=== PATIENT | male | born 1945 | race Caucasian/White ===

== ENCOUNTER 2016-11-28 12:38 | Inpatient (IN) | payer MEDICARE ==
[2016-11-28] MEDS ORDERED: SODIUM CHLORIDE 0.9% 10 ML FLUSH FLUSH PRN (12:47)
[2016-11-28] MEDS ORDERED: HYDROmorphone 1 MG INJECTION IV ONE (12:48)
--- NOTE | 2016-11-28 13:42 | EDPRACDOC ---
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 SLIPPED ON ICE. NO OTHER INJURY REPORTED. Hip Problem Location: Reports: Left, Lateral Mechanism: Reports: Blunt Trauma Circumstances: Reports: Fall Relevant History: Reports: None Able to Bear Weight: No Pain Severity: Severe Associated Signs & Symptoms: Reports: None <Shi Das - Last Filed: 11/28/16 14:56> <Heath Jeter - Last Filed: 11/28/16 15:08> - General Information Chief Complaint: Hip Pain Stated Complaint: FALL Time Seen by Provider: 11/28/16 12:41 Home Medications: Home Medications Dicyclomine HCl [Bentyl] 20 mg PO Q6H #20 tab 07/05/16 Enzalutamide [Xtandi] 160 mg PO DAILY 07/05/16 Leuprolide Acetate [Lupron] 30 mg IM .[id number] 07/05/16 Losartan/Hydrochlorothiazide [Losartan-Hctz 100-25 mg Tab] 1 each PO DAILY 07/05 Metformin HCl [Metformin HCl ER] 1,000 mg PO BID 07/05/16 Allergies/Adverse Reactions: Allergies Allergy/AdvReac Type Severity Reaction Status Date / Time No Known Allergies Allergy Verified 07/05/16 08:34 - Treatment Prior to ED Arrival Reported Medications/Treatment 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 EMS Treatment ALS IV Yes <Shi Das - Last Filed: 11/28/16 14:56> - Treatment Prior to ED Arrival Reported Medications/Treatment 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 EMS Treatment ALS IV Yes <Heath Jeter - Last Filed: 11/28/16 15:08> ED Past Medical History - History Reviewed Yes Nurses notes reviewed and agree except as marked - Patient Medical History Cardiac History: Reports: Hypertension Psychological History: Denies: Depression - Social Medical History Smoking Status: Never smoker <Shi Das - Last Filed: 11/28/16 14:56> EDM Review of Systems - Review of Systems ROS Negative Except as Marked: Yes All systems reviewed and were negative except as marked Constitutional: No Symptoms Reported Respiratory: No Symptoms Reported Cardiovascular: No Symptoms Reported Gastrointestinal: No Symptoms Reported Neurological: No Symptoms Reported Musculoskeletal: Hip Integumentary: No Symptoms Reported <Shi Das - Last Filed: 11/28/16 14:56> - Physical Exam Constitutional: Alert, Distress Oriented to: Time, Person, Place Last recorded Vital Signs: Last Vital Signs Temp 98.4 F 11/28/16 13:19 Pulse 89 11/28/16 13:19 Resp 20 11/28/16 13:19 BP 205/79 H 11/28/16 13:19 Pulse Ox 98 11/28/16 13:19 Oxygen Pulse Oxygen Saturation 98 O2 Device Room Air Oxygen Flow Rate Fraction of Inspired Oxygen ( FIO2) - HEENT Head: Normal Eye Exam: Normal Neck: Normal, Denies Pain, Midline - Respiratory/Cardiovascular Respiratory: Normal - CTA Cardiovascular: Normal - GI Palpation: Normal Tenderness: Non tender - Musculoskeletal Back: Normal Extremities: Other (NOTED SHORTENING AND EXTERNAL ROTATION TO LEFT HIP; APPARENT DEFORMITY TO LEFT HIP; PEDAL PULSES INTACT;) - Integumentary Skin: Normal Lymphatics: Normal - Neurologic Cerebellar: Normal Mood Description: Normal Thought: Coherent Perception: Normal <PippaShi workman - Last Filed: 11/28/16 14:56> - Physical Exam Last recorded Vital Signs: Last Vital Signs Temp 98.4 F 11/28/16 13:19 Pulse 89 11/28/16 13:19 Resp 20 11/28/16 13:19 BP 205/79 H 11/28/16 13:19 Pulse Ox 98 11/28/16 13:19 Oxygen Pulse Oxygen Saturation 98 O2 Device Room Air Oxygen Flow Rate Fraction of Inspired Oxygen ( FIO2) <Heath Jeter - Last Filed: 11/28/16 15:08> ED Hip Problem Physical Exam - Musculoskeletal Hip: Limited ROM, Severe tenderness, Deformity Hip Deformity: External rotation Pelvis: Normal Thigh: Normal Back: Normal Distal Function/Circulation: Normal <PippaShi Roberto - Last Filed: 11/28/16 14:56> - Results 11/28/16 14:05 11/28/16 14:05 - EKG EKG #1 EKG Time: 12:57 -: Yes EKG interpreted by me Rate: bpm: 86 [place]: LAD Rhythm: NSR Block: None Hypertrophy: None ST: Normal <Shi Das Roberto - Last Filed: 11/28/16 14:56> - Results 11/28/16 14:05 11/28/16 14:05 <Heath Jeter - Last Filed: 11/28/16 15:08> - Departure Disposition: Admit IP To This Hospital Decision to Admit Time: 14:56 Decision to admit date: 11/28/16 Decision to admit: from ED - Physician Consulted Orthopedics Time Called: 14:56 Provider Called: Tristan Burt Time Weathercaster Returned Call: 14:56 <Shi Das - Last Filed: 11/28/16 14:56> - Departure Yes I personally saw and evaluated the patient. - Physician Consulted Hospitalist Time Called: 15:08 Provider Called: Scott Irving Time Weathercaster Returned Call: 15:08 <Heath Jeter - Last Filed: 11/28/16 15:08> - Departure Condition: Stable Final Diagnosis: Hip fracture Qualifiers: Encounter type: initial encounter Fracture type: closed Laterality: left Qualified Code(s): S72.002A - Fracture of unspecified part of neck of left femur , initial encounter for closed fracture
--- NOTE | 2016-11-28 14:12 | DIRPT ---
CLINICAL DATA: Status post fall today. Left hip pain. Initial encounter. EXAM: LEFT FEMUR - 2 VIEW COMPARISON: None. FINDINGS: There is no evidence of fracture or other focal bone lesions. Soft tissues are unremarkable. IMPRESSION: Negative exam. Electronically Signed By: Niraj Coulter M.D. On: 11/28/2016 14:09
--- NOTE | 2016-11-28 14:12 | DIRPT ---
CLINICAL DATA: Patient status post fall. EXAM: CHEST 1 VIEW COMPARISON: None. FINDINGS: Normal cardiac and mediastinal contours. No consolidative pulmonary opacities. No pleural effusion or pneumothorax. Regional skeleton is unremarkable. IMPRESSION: No acute cardiopulmonary process. Electronically Signed By: Ivan Ortiz M.D. On: 11/28/2016 14:09
--- NOTE | 2016-11-28 14:13 | DIRPT ---
CLINICAL DATA: Fall on ice, left hip pain. EXAM: LEFT HIP (WITH PELVIS) 2-3 VIEWS COMPARISON: None. FINDINGS: There is a significantly displaced/ comminuted fracture of the left femoral neck, intertrochanteric, with associated angulation deformity and impaction at the fracture site. Left femoral head remains grossly well positioned relative to the acetabulum. No fracture or dislocation seen within the adjacent osseous pelvis. Numerous surgical clips noted within the lower pelvis. Soft tissues about the pelvis are otherwise unremarkable. IMPRESSION: Displaced/comminuted fracture within the left femoral neck, intertrochanteric, with associated angulation deformity and impaction. Electronically Signed By: Wilfredo Kilpatrick M.D. On: 11/28/2016 14:10
[2016-11-28 14:19] LABS: AUTOMATED BASOPHIL 0.7 % (0-2); AUTOMATED EOSINOPHIL 0.8 % (0-5); AUTOMATED LYMPH 8.4 % (17-44); AUTOMATED MONOCYTE 7.4 % (3-10); AUTOMATED NEUTROPHIL 82.7 % (45-76); MPV 8.5 fL (7.4-10.4)
[2016-11-28 14:30] LABS: BLOOD UREA NITROGEN 18 MG/DL (9-20); CALCULATED OSMOLALITY 271 MOs/Kg (270-290); CHLORIDE 101 mEq/L (98-107); GLUCOSE 156 MG/DL (70-99); SODIUM LEVEL 138 mEq/L (137-146); TOTAL PROTEIN 7.2 G/DL (6.3-8.2)
[2016-11-28 14:37] LABS: PARTIAL THROMB. TIME 22.2 SEC (22-35)
[2016-11-28] MEDS ORDERED: OXYCODONE HCL 5 MG TABLET PO PRN ×2 (15:28)
--- NOTE | 2016-11-28 16:23 | PCM.ORTHCO ---
Consultation Date: 11/28/16 Reason for Consult: Fracture (left hip) - History of Present Illness Mr. garcias is a 71 year old male who presented to the ED today with left hip pain after a fall on the ice earlier today, around 11AM. He had hip pain following the fall and was unable to bear weight on the left leg. Patient was seen in the ED and diagnosed with a left intertrochanteric hip fracture. He was ambulating without assistive device prior to injury. Lives with his . Former smoker, over 20 years ago. History of hypertension and diabetes. Denies SOB or chest pain. No other concerns today. - Past Medical and Surgical History Cardiac History: Reports: Hypertension Psychological History: Denies: Depression Allergies No Known Allergies Allergy (Verified 07/05/16 08:34) Home Medications Dicyclomine HCl [Bentyl] 20 mg PO Q6H #20 tab 07/05/16 Enzalutamide [Xtandi] 160 mg PO DAILY 07/05/16 Leuprolide Acetate [Lupron] 30 mg IM .[id number] 07/05/16 Losartan/Hydrochlorothiazide [Losartan-Hctz 100-25 mg Tab] 1 each PO DAILY 07/05 Metformin HCl [Metformin HCl ER] 1,000 mg PO BID 07/05/16 - Social History Smoking Status: Former smoker (over 20 years ago) - Review of Systems Constitutional: negative: Chills, Fever Respiratory: negative: Shortness of Breath Cardiovascular: negative: Chest Pain Neurological: negative: Numbness, Tingling Musculoskeletal:: Joint Pain (left hip) - Physical Exam Vital Signs: Initial Vitals Temperature 98.2 F 11/28/16 12:50 Pulse Rate 95 11/28/16 12:50 Respiratory Rate 18 11/28/16 12:50 Blood Pressure 214/97 H 11/28/16 12:50 Pulse Oxygen Saturation 95 11/28/16 12:50 Last Vital Signs Temp 98.0 F 11/28/16 17:43 Pulse 80 11/28/16 17:43 Resp 18 11/28/16 17:43 BP 167/74 11/28/16 17:43 Pulse Ox 97 11/28/16 17:43 Constitutional: No apparent distress, Alert, Well appearing Oriented to: Time, Person, Place - HEENT Head: Normal - Musculoskeletal Extremities: Pedal Pulse, Other (LLE shortened and externally rotated. SITLT.) - Neurologic Memory Impaired: Normal Motor Function: Normal Cranial Nerve: Normal Mood Description: Normal Thought: Coherent Perception: Normal - Lab Results 11/28/16 14:05 11/28/16 14:05 - Diagnostic Findings EXAM: LEFT HIP (WITH PELVIS) 2-3 VIEWS COMPARISON: None. FINDINGS: There is a significantly displaced/ comminuted fracture of the left femoral neck, intertrochanteric, with associated angulation deformity and impaction at the fracture site. Left femoral head remains grossly well positioned relative to the acetabulum. No fracture or dislocation seen within the adjacent osseous pelvis. Numerous surgical clips noted within the lower pelvis. Soft tissues about the pelvis are otherwise unremarkable. IMPRESSION: Displaced/comminuted fracture within the left femoral neck, intertrochanteric, with associated angulation deformity and impaction. Electronically Signed By: Wilfredo Kilpatrick M.D. On: 11/28/2016 14:10 - Assessment/Plan (1) Intertrochanteric fracture of left hip S72.142A - DISPLACED INTERTROCHANTERIC FRACTURE OF LEFT FEMUR, INIT Acute Present on Admission: Yes initial encounter closed S72.142A - Displaced intertrochanteric fracture of left femur, initial encounter for closed fracture (2) Hip fracture S72.009A - FRACTURE OF UNSP PART OF NECK OF UNSP FEMUR, INIT Acute initial encounter closed left S72.002A - Fracture of unspecified part of neck of left femur, initial encounter for closed fracture Case Care Discussed with: Patient, Family Plan: Risks and benefits of surgery discussed with patient and family. Risks include but not limited to blood clot, infection, damage to blood vessels and nerves, need for further surgery, and risks of infection. Agree to proceed. Consent obtained and signed. Plan for IM nail of left hip tomorrow with Dr. Burt. Continue pain management Strict bed rest until after surgery NPO after midnight.
[2016-11-28] MEDS ORDERED: BENZONATATE 100 MG PERLES PO PRN (16:36)
[2016-11-28] MEDS ORDERED: GUAIFENESIN 200 MG/10 ML UDC PO PRN (16:36)
[2016-11-28] MEDS ORDERED: GLUCAGON 1 MG VIAL SQ PRN (16:36)
[2016-11-28] MEDS ORDERED: BISACODYL 5 MG TAB PO PRN (16:36)
[2016-11-28] MEDS ORDERED: GLUCOSE (ORAL GEL) 15 GM TUBE PO PRN (16:36)
[2016-11-28] MEDS ORDERED: SODIUM CHLORIDE 0.9% 3 ML FLUSH FLUSH PRN (16:36)
[2016-11-28] MEDS ORDERED: DOCUSATE-SENNA CONCENTRATE TAB PO PRN (16:36)
[2016-11-28] MEDS ORDERED: SIMETHICONE 80 MG TAB PO PRN (16:36)
[2016-11-28] MEDS ORDERED: TEMAZEPAM 15 MG CAP PO PRN (16:36)
[2016-11-28] MEDS ORDERED: ACETAMINOPHEN 325 MG/TAB TABLET PO PRN (16:36)
[2016-11-28] MEDS ORDERED: ONDANSETRON HCL 4 MG/2 ML VIAL IV PRN ×2 (16:36)
[2016-11-28] MEDS ORDERED: DEXTROSE 25 GM/50 ML PFS IV PRN (16:36)
[2016-11-28] MEDS ORDERED: ENALAPRILAT 1.25 MG/ML VIAL IV PRN (16:43)
--- NOTE | 2016-11-28 16:47 | HISTPHYS ---
- Chief Complaint leg pain - History of Present Illness 71 yo male with has been previously active presented to the ED after a fall on the ice today at his home. He denies any CP, SOB or dizziness prior to the fall. There had been a snowfall and ice formation the night before. the patient was looking for his morning newspaper. He did not sustain a head injury and had no LOC. he was brought to the ED by EMS. Xrays show a left femoral neck fracture. - Medical History Cardiac History: Reports: Hypertension, Stress Test (distant past. No cath done) . Denies: Coronary Artery Disease, Congestive Heart Failure, Syncope Respiratory History: Reports: No Significant History GI/ History: Reports: Kidney Stones (lithotripsy x 2) Musculoskeletal History: Reports: No Significant History Systemic History: Reports: Cancer (prostate), Diabetes Neurological History: Reports: No Significant History. Denies: Cerebrovascular Accident, Parkinson's Psychological History: Denies: Depression, Alcoholism - Surgical History Reports: Other (prostste surgery) - Medictions/Allergies Allergies No Known Allergies Allergy (Verified 07/05/16 08:34) Home Medications Dicyclomine HCl [Bentyl] 20 mg PO Q6H #20 tab 07/05/16 Enzalutamide [Xtandi] 160 mg PO DAILY 07/05/16 Leuprolide Acetate [Lupron] 30 mg IM .[id number] 07/05/16 Losartan/Hydrochlorothiazide [Losartan-Hctz 100-25 mg Tab] 1 each PO DAILY 07/05 Metformin HCl [Metformin HCl ER] 1,000 mg PO BID 07/05/16 - Family History Reports: Diabetes - Social History Travel Outside of [place] in the Last 3 Months?: No Lives: with Spouse Smoking Status: Former smoker (over 20 years ago) Social History: Denies: Alcohol Use - Review of Systems Constitutional: negative: Chills, Fever, Fatigue, Weakness, Weight loss Eyes: Uses Glasses/Contact lenses Ears: No Symptoms Reported Nose: No Symptoms Reported Mouth: No Symptoms Reported Throat/Neck: No Symptoms Reported. negative: Snoring Respiratory: No Symptoms Reported. negative: Cough, Shortness of Breath, Asthma Cardiovascular: No Symptoms Reported. negative: Chest Pain, Edema, PND, Syncope Gastrointestinal: negative: No Symptoms Reported, Heartburn, Appetite Changes Genitourinary: negative: Bleeding, Discharge Neurological: negative: Dizziness, Gait Difficulty, Headache, Speech Difficulty , Weakness Musculoskeletal:: No Symptoms Reported. negative: Osteoarthritis Integumentary: No Symptoms Reported Allergic/Immunologic: No Symptoms Reported Hematologic: No Symptoms Reported Endocrine: Diabetes (controlled with metformin) Psychiatric: negative: Anxiety, Depression, Insomnia - Physical Exam Vital Signs: Initial Vitals Temperature 98.2 F 11/28/16 12:50 Pulse Rate 95 11/28/16 12:50 Respiratory Rate 18 11/28/16 12:50 Blood Pressure 214/97 H 11/28/16 12:50 Pulse Oxygen Saturation 95 11/28/16 12:50 Constitutional: No apparent distress, Other (obese) Oriented to: Time, Person, Place - HEENT Head: Normal. negative: Abrasion Eye: Normal. negative: Conjunctival Injection Oropharynx: Normal. negative: Tonsillar Hypertrophy Tympanic Membrane: Normal ENT EAC: Normal Nose: negative: Abrasion, Congestion Respiratory: Normal - CTA. negative: Accessory Muscle Use, Wheezes Cardiovascular: Normal (S1 and S2 normal, no edema) - GI Auscultation: Normal Palpation: Normal. negative: Enlarged liver, Enlarged spleen Tenderness: Non tender Rectal Exam: Deferred - Exam Deferred: Yes - Musculoskeletal Back: No Palpable Step-off, Other (not viewed due to immobilization from fracture) Extremities: Pedal Pulse (intact and equal). negative: Calf Tenderness, Edema Spine: non-tender - Integumentary Skin: Warm, Dry Lymphatics: negative: Adenopathy, Cervical Adenopathy, Supraclavicular Adenopathy - Neurologic Memory Impaired: Normal Motor Function: Normal, Unable to Test (LLE not tested due to fracture.) Cranial Nerve: Normal (CN2-12 intact) Cerebellar: Normal Mood Description: Normal Thought: Coherent Perception: Normal - Foot Exam Foot Prick Test: Normal Babinski Reflex Response: Absent Bilateral Achilles Tendon Reflex Response: Normal Skin/Nail Foot Exam: Dry. negative: Maceration, Skin Breakdown Vascular Foot exam: negative: Edema, Capillary refill Greater than 3-4 seconds Foot Exam: Normal inspection, Full ROM. negative: Tenderness, Amputation, Puncture wound - Focused CV Perfusion Exam Vital Signs: Last Vital Signs Temp 98.4 F 11/28/16 13:19 Pulse 77 11/28/16 15:20 Resp 18 11/28/16 15:20 BP 167/77 11/28/16 15:20 Pulse Ox 97 11/28/16 15:20 - Lab Results 11/28/16 14:05 11/28/16 14:05 - Diagnostic Findings CXR: no acute cardipulmonary process. - Assessment (1) Intertrochanteric fracture of left hip S72.142A - DISPLACED INTERTROCHANTERIC FRACTURE OF LEFT FEMUR, INIT Acute Present on Admission: Yes Qualifiers: Encounter type: initial encounter Fracture type: closed Qualified Code(s) : S72.142A - Displaced intertrochanteric fracture of left femur, initial encounter for closed fracture Surgery planned by orthopedics. No medical contraindication as medical problems are controlled. EKG unremarkable. (2) Diabetes type 2, controlled E11.9 - TYPE 2 DIABETES MELLITUS WITHOUT COMPLICATIONS Acute Present on Admission: Yes Qualifiers: Diabetes mellitus complication status: without complication Diabetes mellitus surveillance supervisor insulin use: without surveillance supervisor use Qualified Code(s): E11.9 - Type 2 diabetes mellitus without complications Hold metformin until eating again. Will use low dose SSI and follow sugars. Check hemoglobin A1c but by report his CBGs are controlled in the 150-170 range on average. (3) Hypertension I10 - ESSENTIAL (PRIMARY) HYPERTENSION Acute Present on Admission: Yes Qualifiers: Hypertension type: essential hypertension Qualified Code(s): I10 - Essential (primary) hypertension Elevated today likely due to pain. Patient and state his blood pressure has been controlled at home. Use IV vasotec if eevated. Hold oral medications until post-op and he took his medications this am. (4) History of prostate cancer Z85.46 - PERSONAL HISTORY OF MALIGNANT NEOPLASM OF PROSTATE Acute Present on Admission: Yes Still on treatment. Continue home medications after surgery. Case Care Discussed with: Patient, Family Total Time: 55 min Critical Care: No Code: 13414
[2016-11-28] MEDS ORDERED: HYDROmorphone 1 MG INJECTION ONE (17:07)
[2016-11-28 17:49] VITALS: BMI 31.8
[2016-11-28] MEDS: SODIUM CHLORIDE 0.9% 3 ML FLUSH FLUSH SCH (18:38)
[2016-11-28] MEDS: D5-1/2NS/KCL 20 mEq 1,000 ML IV SCH (18:38)
[2016-11-28] MEDS: REGULAR INSULIN 100 UNITS/ML - 3 ML VIAL SQ SCH ×2 (18:38→20:06)
[2016-11-28] MEDS ORDERED: ENZALUTAMIDE 160 MG PO SCH (20:00)
[2016-11-28] MEDS ORDERED: Vaccine Screening Complete SCH (21:00)
[2016-11-28] MEDS ORDERED: CHLORHEXIDINE (HIBICLENS) 4 OZ BOTTLE TOP ONE (21:00)
[2016-11-29] MEDS: SODIUM CHLORIDE 0.9% 3 ML FLUSH FLUSH SCH ×2 (00:42→17:18)
[2016-11-29] MEDS: MORPHINE 2 MG/ML INJECTION IV PRN ×3 (00:42→23:08)
[2016-11-29] MEDS: REGULAR INSULIN 100 UNITS/ML - 3 ML VIAL SQ SCH ×4 (02:04→23:05)
[2016-11-29] MEDS: D5-1/2NS/KCL 20 mEq 1,000 ML IV SCH ×2 (06:12→19:30)
[2016-11-29] MEDS ORDERED: CEFAZOLIN 1 GM VIAL IV ONE (07:00)
[2016-11-29] MEDS ORDERED: SUCCINYLCHOLINE 20 MG/1 ML INJ 10 ML MDV IV ONE (10:00)
[2016-11-29] MEDS ORDERED: ESMOLOL 100 MG/10 ML VIAL IV ONE (10:00)
[2016-11-29] MEDS ORDERED: LIDOCAINE 100 MG PFS IV ONE (10:00)
[2016-11-29] MEDS ORDERED: DEXAMETHASONE 4 MG/ML VIAL IV ONE (10:00)
[2016-11-29] MEDS ORDERED: MIDAZOLAM 2 MG/2 ML VIAL IV ONE (10:00)
[2016-11-29] MEDS ORDERED: ROCURONIUM 50 MG/5 ML VIAL IV ONE (10:00)
[2016-11-29] MEDS ORDERED: ONDANSETRON HCL 4 MG/2 ML VIAL IV ONE (10:00)
[2016-11-29] MEDS ORDERED: FENTANYL 100 MCG/2 ML VIAL IV ONE (10:00)
[2016-11-29] MEDS ORDERED: PROPOFOL 200 MG/20 ML VIAL IV ONE (10:00)
[2016-11-29] MEDS ORDERED: MEPERIDINE 25 MG/ML TUBEX IV PRN (10:30)
[2016-11-29] MEDS ORDERED: FENTANYL 100 MCG/2 ML VIAL IV PRN ×2 (10:30)
[2016-11-29] MEDS ORDERED: PROMETHAZINE 25 MG/ML VIAL IV PRN ×2 (10:30)
[2016-11-29] MEDS ORDERED: ONDANSETRON HCL 4 MG ODT TAB PO PRN (10:30)
[2016-11-29] MEDS ORDERED: HYDROmorphone 1 MG INJECTION IV PRN ×2 (10:30)
[2016-11-29] MEDS ORDERED: ONDANSETRON HCL 4 MG/2 ML VIAL IV PRN (10:30)
[2016-11-29] MEDS ORDERED: LABETALOL 20 MG/4 ML SYRINGE IV PRN (10:30)
[2016-11-29] MEDS ORDERED: hydrALAZINE 20 MG/ML VIAL IV PRN (10:30)
--- NOTE | 2016-11-29 10:30 | SC.ANESPOS ---
Post-Anesthesia Note LOC: [place] on Calling Post-Anesthesia Assessment: Awake, Returned to Baseline, Hemodynamically Stable , Pain Control Adequate Phase I & II Recovery Complete: Yes Apparent Anesthesia Complication: No : N - Vital Signs Blood Pressure: 142/66 Pulse: 78 Resp Rate: 18 O2 Sat: 94 Temp: 98.6 F
--- NOTE | 2016-11-29 10:32 | HIM.ANES ---
Anesthesia Evaluation & Plan - Focused Review of Systems Cardiac History: Yes: Hx Hypertension, Hx Cardiac Disorders HEENT: Yes: Hx Vision Problem (Glasses), Other HEENT Problems Gastrointestinal: Yes: Hx Gastrointestinal Disorders, Hx Obstructive Bowel ( intestinal blockage in july-) Neurological/Musculoskeletal: No: Hx Neurological Disorders Psychological: No Hx Depression, No Hx Mental/Emotional Disorders Endocrine: Yes: Hx Non-Insulin Dependent Diabetes (metformin bid) Blood/Autoimmune: Yes: Hx Blood Transfusions (auto infused) No: Hx Hepatitis (type) Smoking Status: Former smoker (over 20 years ago) Hx Chest Xray (date): Yes (11/28/2015) Surgical History: Yes: T&A (removed at 6mo old) Other Surgical History: prostate surgery 12 years ago - Focused Physical Exam NPO since: 0000 11/29/2016 Mallampati: Class III Thyromental Distance: Less than 3 Neck: Full Range of Motion Dental: Other (Many missing teeth) Cardiovascular/Chest: Normal Respiratory: Lungs clear Any problems with anesthesia, including nausea and vomiting?: No Any relatives with a history of Malignant Hyperthermia?: No Does patient have a history of Malignant Hyperthermia?: No Beta Dustin given (if appropriate): N/A Other: Problem List Problem Status Onset Diabetes type 2, controlled Acute Hip fracture Acute History of prostate cancer Acute Hypertension Acute Intertrochanteric fracture of left hip Acute PT/PTT/INR/ PT 10.7 SEC (9.2-11.2) 11/28/16 14:05 INR 1.0 11/28/16 14:05 APTT 22.2 SEC (22-35) 11/28/16 14:05 Allergies Allergy/AdvReac Type Severity Reaction Status Date / Time No Known Allergies Allergy Verified 07/05/16 08:34 Home Medications Medication Instructions Recorded Last Taken Type Enzalutamide [Xtandi] 160 mg PO DAILY 07/05/16 11/27/16 22:15 History Losartan/Hydrochlorothiazide 1 each PO DAILY 07/05/16 11/28/16 07:30 History [Losartan-Hctz 100-25 mg Tab] Metformin HCl [Metformin HCl ER] 500 mg PO BID 07/05/16 11/27/16 22:15 History Height and Weight Patient's height 6 ft Patient's weight 234 lb 8 oz Weight (Calculated Kilograms) 106.367 BMI 31.8 Vital Signs Temperature 98.6 F 11/29/16 10:30 Pulse Rate 78 11/29/16 10:30 Respiratory Rate 18 11/29/16 10:30 Blood Pressure 142/66 11/29/16 10:30 Pulse Oxygen Saturation 94 11/29/16 10:30 - Anesthetic Plan Anesthesia Type: General (Pt requests GA) ASA Class: 2 -: I have examined this patient and reviewed the medical record. The patient has been assessed prior to anesthesia. Risks and benefits of anesthesia and anesthetic technique options have been discussed and all questions answered. The patient accepts the risk and desires me to proceed with the planned anesthetic.
--- NOTE | 2016-11-29 13:00 | HIMOPRPT ---
DATE OF PROCEDURE: 11/29/16 PREOPERATIVE DIAGNOSIS: Left hip subtrochanteric fracture. POSTOPERATIVE DIAGNOSIS: Left hip subtrochanteric fracture. PROCEDURE PERFORMED: Left hip gamma nail, hip intramedullary nail. SURGEON: Tristan Burt MD. PAID SEARCH MANAGER: KARSTEN Espitia ANESTHESIA: General endotracheal Anesthesia. IV FLUIDS: Crystalloids ESTIMATED BLOOD LOSS: 50 ml SPECIMENS: none. COMPLICATIONS: None. IMPLANTS: Synthetic Substitute Metal [place] gamma 3 nail [id number] millimeters long, proximal locking screw 110 millimeters long. BRIEF HISTORY: WAYNE CRAWFORD is a 71 year-old M patient. Patient had history of fall and sustained a left hip subtrochanteric fracture. Based on the nature and displacement of the fracture open reduction internal fixation versus closed reduction and intramedullary nailing was recommended. Informed consent was obtained from the patient. The patient understood that the risks involved in surgery include infection, damage to the nerve, blood vessel, need for further surgery, implant failure, continued pain, DVT, pulmonary embolism, stroke, and even . The patient was seen on the day of surgery in the preop holding area. Surgical site was marked. The patient was then wheeled back into the operating room. DESCRIPTION OF THE PROCEDURE: Proper time-out was performed. 2 grams of IV Ancef were given. The patient was given proper anesthesia. Left lower extremity was placed in traction and left lower extremity was placed in well- leg davis. Preoperative longitudinal traction was applied and closed reduction of the fracture was achieved. This appeared acceptable on both AP and lateral view using C-arm. The left lower extremity was prepped and draped. We started with an incision proximal to the greater trochanter. AP and lateral C -arm images were used. Entrance was created using a curved bone awl. We then inserted a guidewire across the fracture site into the distal fragment. The femur was then reamed. We reamed up to 14.5 millimeter diameter reamer. We then measured the size of the nail as 380 millimeters long nail. We then procured if 20w328 millimeters gamma 3 nail and this was inserted in an antegrade fashion. This nail was 125 degrees neck shaft angle. We then drilled for the proximal lag screw. The length of the lag screw was measured at 110 millimeters. We then inserted a 110-millimeter long lag screw proximally. The nail was locked in place. We then placed a distal static lock through the distal part of the nail using freehand technique. Final AP and lateral x-rays were obtained. The wound was copiously irrigated with normal saline and closed in layers. The patient tolerated the procedure very well and was taken to the recovery room in stable condition. DISPOSITION: Patient will be weight-bearing as tolerated on his left lower extremity The patient would also be started on [Aspirin 325mg Bid] .
[2016-11-29] MEDS ORDERED: HYDROmorphone 1 MG INJECTION ONE (13:24)
[2016-11-29] MEDS ORDERED: FENTANYL 100 MCG/2 ML VIAL ONE (13:54)
--- NOTE | 2016-11-29 15:51 | DIRPT ---
CLINICAL DATA: ORIF. EXAM: LEFT HIP (WITH PELVIS) 1 VIEW PORTABLE COMPARISON: None. FINDINGS: ORIF left subtrochanteric hip fracture. Hardware intact. Near anatomic alignment. Exam otherwise unremarkable . IMPRESSION: ORIF left sub trochanteric hip fracture . Hardware intact. Near anatomic alignment . Electronically Signed By: Niraj Milan On: 11/29/2016 15:49
--- NOTE | 2016-11-29 16:32 | GENMEDPROG ---
Subjective Note: Patient just returned from OR doing very well he is awake and alert and oriented. Notes Reviewed: Yes Events from last night noted and discussed with Clinical Staff Current Medication List: Reviewed Currently: Denies: Cough, Wheezing, WINKLER, Nausea and Vomiting, Reflux Sx, Caty PT/ OT, Ambulating DVT Prophylaxis: Yes - Physical Examination Vital Signs and I&O: Last Vital Signs Temp 98.6 F 11/29/16 15:25 Pulse 82 11/29/16 15:35 Resp 18 11/29/16 15:35 BP 139/73 11/29/16 15:35 Pulse Ox 98 11/29/16 15:35 Oxygen Pulse Oxygen Saturation [ 85 Seated] Pulse Oxygen Saturation 98 O2 Device Nasal Cannula Oxygen Flow Rate 2 Fraction of Inspired Oxygen ( FIO2) Intake & Output 11/26/16 11/27/16 11/28/16 11/29/16 23:59 23:59 23:59 23:59 Intake Total 200 672 Output Total 400 1100 Balance -200 -428 Patient's weight 106.367 kg General: Alert, Oriented x3, No acute distress, Well appearing, Well nourished HEENT: Normal (Normocephalic, atraumatic;EOMI.Sclera white, Nares patent, without discharge or bleeding. No oropharyngeal lesions or erythema. Mucous membranes are dry.) Neck: Non-tender, Full range of motion, Normal Trachea alignment, Normal inspection (No cervical lymphadenopathy. No supraclavicular lymphadenopathy.), No Masses palpable, Supple Lymphatics: negative: Adenopathy, Cervical Adenopathy, Supraclavicular Adenopathy Respiratory: Normal - CTA. negative: Accessory Muscle Use, Wheezes Cardiovascular: Regular rate and rhythm (No bradycardia or tachycardia), Normal S1, No Gallops,Rubs/Murmurs, Normal S2, Good Pedal Pulses (DP pulses 2+ bilaterally) GI: Normal bowel sounds (normal active sounds), Soft (non-distended), Non tender , No hepatospenomegaly, No masses Extremities/Musculoskeletal: Normal pulses (DP pulses 2+ bilaterally) Skin: Warm,Dry and Intact, No rashes, No significant lesion Neurological: Strength at 5/5 X4 ext (Motor 5/5 throughout.), Normal tone, Cranial nerves 3-12 NL ( 2-12 grossly intact.) Lab/DI/Studies Reviewed: Abnormal Lab Results 11/28/16 11/28/16 11/29/16 16:36 20:04 05:50 POC Capillary Glucose 176 H 140 H Hemoglobin A1c 6.6 H 11/29/16 13:30 POC Capillary Glucose 160 H Hemoglobin A1c - Assessment (1) Intertrochanteric fracture of left hip Acute S72.142A - DISPLACED INTERTROCHANTERIC FRACTURE OF LEFT FEMUR, INIT Qualifiers: Encounter type: initial encounter Fracture type: closed Qualified Code(s) : S72.142A - Displaced intertrochanteric fracture of left femur, initial encounter for closed fracture Comment/Plan: Patient did well in the OR. He is currently postoperative awake and alert communicating. (2) Diabetes type 2, controlled Acute E11.9 - TYPE 2 DIABETES MELLITUS WITHOUT COMPLICATIONS Qualifiers: Diabetes mellitus complication status: without complication Diabetes mellitus terminal gauger insulin use: without terminal gauger use Qualified Code(s): E11.9 - Type 2 diabetes mellitus without complications Comment/Plan: Hold metformin until eating again. Will use low dose SSI and follow sugars. Check hemoglobin A1c but by report his CBGs are controlled in the 150-170 range on average. (3) Hypertension Acute I10 - ESSENTIAL (PRIMARY) HYPERTENSION Qualifiers: Hypertension type: essential hypertension Qualified Code(s): I10 - Essential (primary) hypertension Comment/Plan: Elevated today likely due to pain. Patient and state his blood pressure has been controlled at home. Use IV vasotec if eevated. Hold oral medications until post-op and he took his medications this am. (4) History of prostate cancer Acute Z85.46 - PERSONAL HISTORY OF MALIGNANT NEOPLASM OF PROSTATE Comment/ Plan: Still on treatment. Continue home medications after surgery. - Plan To skilled facility once stable Disposition Plan: To skilled facility Case Care Discussed with: Patient, Family Education/Counseling Given To: Patient, Family Member Education/Counseling Given Regarding: Diagnosis, Treatment, Prognosis, Follow Up , Disposition Plan, Other Total Time: 35 minutes Critical Care: No Couseling Time (>50% in counseling/coordination): No
[2016-11-29] MEDS: Aspirin (Orange Enteric Coated) 325 mg tab PO SCH (17:18)
[2016-11-30] MEDS: MORPHINE 2 MG/ML INJECTION IV PRN ×3 (01:33→13:09)
[2016-11-30] MEDS: SODIUM CHLORIDE 0.9% 3 ML FLUSH FLUSH SCH ×2 (05:48→17:04)
[2016-11-30] MEDS: D5-1/2NS/KCL 20 mEq 1,000 ML IV SCH ×3 (05:50→20:00)
[2016-11-30] MEDS: REGULAR INSULIN 100 UNITS/ML - 3 ML VIAL SQ SCH ×4 (05:50→21:21)
[2016-11-30 07:15] LABS: MPV 8.7 fL (7.4-10.4)
[2016-11-30 07:47] LABS: BLOOD UREA NITROGEN 15 MG/DL (9-20); CALCIUM 8.3 MG/DL (8.4-10.2); CALCULATED OSMOLALITY 260 MOs/Kg (270-290); CHLORIDE 101 mEq/L (98-107); GLUCOSE 176 MG/DL (70-99); SODIUM LEVEL 132 mEq/L (137-146)
[2016-11-30] MEDS: Aspirin (Orange Enteric Coated) 325 mg tab PO SCH ×2 (08:14→17:04)
[2016-11-30] MEDS ORDERED: OXYCODONE HCL 5 MG TABLET PO PRN (08:48)
--- NOTE | 2016-11-30 08:49 | PCM.ORTHBL ---
- Subjective Post Op Day: 1 Daily Assessment - Patient: Reports: No new complaints, Awake Alert Oriented x4 , Feels better, Pain is less, Tolerating Regular Diet, Voiding without difficulty, Afebrile, Ambulating with Physical Therapist. Denies: Shortness of breath, Nausea, Vomiting - Objective / Physical Exam Vital Signs: Temperature: 98.7 F (11/30/16 06:00) HR: 106 (11/30/16 06:25)RR: 18 (11/30/16 06 :00) BP: 146/71 (11/30/16 06:00)Pulse Ox: 92 (11/30/16 06:00) General: Alert, Oriented x3, Cooperative, No acute distress, Well appearing Musculoskeletal / Extremities: 2 plus Dorsalis Pedis Pulse, Dressing Clean/Dry/ Intact. negative: Tenderness (no calf tenderness) Neurological: Positive Sensation First Dorsal Web Space, Sensation to light touch intact, Extensor Hallicus Longus Intact, Flexor Hallicus Longus Intact, Dorsiflexion Intact, Plantarflexion Intact Laboratory/Diagnostics Reviewed: 11/30/16 06:45 11/30/16 06:45 - Assessment and Plan (1) Intertrochanteric fracture of left hip Acute S72.142A - DISPLACED INTERTROCHANTERIC FRACTURE OF LEFT FEMUR, INIT Present on Admission: Yes initial encounter closed S72.142A - Displaced intertrochanteric fracture of left femur, initial encounter for closed fracture (2) Hip fracture Acute S72.009A - FRACTURE OF UNSP PART OF NECK OF UNSP FEMUR, INIT initial encounter closed left S72.002A - Fracture of unspecified part of neck of left femur, initial encounter for closed fracture Plan: POD#1 s/p IM nail PT/OT/WBAT TEDS/SCDS/ECASA 325mg BID for 30 days post-op for DVT prophylaxis Continue pain management D/C planning, plan for rehab/SNF
[2016-11-30] MEDS: OXYCODONE HCL 5 MG TABLET PO PRN (09:42)
--- NOTE | 2016-11-30 17:23 | GENMEDPROG ---
Subjective Note: Patient with no new complaints. Blood pressure has been stable. Currently: Denies: Cough, Wheezing, WINKLER, Nausea and Vomiting, Reflux Sx, Caty PT/ OT, Ambulating DVT Prophylaxis: Yes - Physical Examination Vital Signs and I&O: Last Vital Signs Temp 98.2 F 11/30/16 14:00 Pulse 100 11/30/16 14:00 Resp 18 11/30/16 14:00 BP 150/75 11/30/16 14:00 Pulse Ox 93 11/30/16 14:00 Oxygen Pulse Oxygen Saturation [ 85 Seated] Pulse Oxygen Saturation 93 O2 Device Nasal Cannula Oxygen Flow Rate 2 Fraction of Inspired Oxygen ( FIO2) Intake & Output 11/27/16 11/28/16 11/29/16 11/30/16 23:59 23:59 23:59 23:59 Intake Total 200 1528 600 Output Total 400 1725 1050 Balance -200 197 -450 Patient's weight 106.367 kg 107.275 kg General: Alert, Oriented x3, Cooperative, No acute distress, Well appearing HEENT: Normal (Normocephalic, atraumatic;EOMI.Sclera white, Nares patent, without discharge or bleeding. No oropharyngeal lesions or erythema. Mucous membranes are dry.) Neck: Non-tender, Full range of motion, Normal Trachea alignment, Normal inspection (No cervical lymphadenopathy. No supraclavicular lymphadenopathy.), No Masses palpable, Supple Lymphatics: Normal (No lymph node swelling or pain.) Respiratory: Normal - CTA (Clear to auscultation bilaterally. No wheezing, rales , rhonchi. Chest wall movements are symmetric. No use of accessory muscles to breathe.) Cardiovascular: Regular rate and rhythm (No bradycardia or tachycardia), Normal S1, No Gallops,Rubs/Murmurs, Normal S2, Good Pedal Pulses (DP pulses 2+ bilaterally) GI: Normal bowel sounds (normal active sounds), Soft (non-distended), Non tender , No hepatospenomegaly, No masses Skin: Warm,Dry and Intact, No rashes, No significant lesion Neurological: Strength at 5/5 X4 ext (Motor 5/5 throughout.), Normal tone, Cranial nerves 3-12 NL ( 2-12 grossly intact.) Lab/DI/Studies Reviewed: Abnormal Lab Results 11/29/16 11/30/16 11/30/16 20:43 05:23 06:45 RBC Hgb Hct Sodium 132 L Glucose 176 H POC Capillary Glucose 150 H 178 H Calculated Osmolality 260 L Calcium 8.3 L 11/30/16 11/30/16 11/30/16 06:45 11:15 16:20 RBC 3.32 L Hgb 10.5 L D Hct 30.8 L Sodium Glucose POC Capillary Glucose 196 H 154 H Calculated Osmolality Calcium - Assessment (1) Intertrochanteric fracture of left hip Acute S72.142A - DISPLACED INTERTROCHANTERIC FRACTURE OF LEFT FEMUR, INIT Qualifiers: Encounter type: initial encounter Fracture type: closed Qualified Code(s) : S72.142A - Displaced intertrochanteric fracture of left femur, initial encounter for closed fracture Comment/Plan: Patient ambulated to chair today and did well. (2) Diabetes type 2, controlled Acute E11.9 - TYPE 2 DIABETES MELLITUS WITHOUT COMPLICATIONS Qualifiers: Diabetes mellitus complication status: without complication Diabetes mellitus terminal gauger supervisor insulin use: without terminal gauger supervisor use Qualified Code(s): E11.9 - Type 2 diabetes mellitus without complications Comment/Plan: Can restart metformin today. Hemoglobin A1c is well controlled. Continue present care (3) Hypertension Acute I10 - ESSENTIAL (PRIMARY) HYPERTENSION Qualifiers: Hypertension type: essential hypertension Qualified Code(s): I10 - Essential (primary) hypertension Comment/Plan: Patient tolerating p.o. intake. Will restart oral meds blood pressure medications. (4) History of prostate cancer Acute Z85.46 - PERSONAL HISTORY OF MALIGNANT NEOPLASM OF PROSTATE Comment/ Plan: Still on treatment. Continue home medications after surgery. - Plan To skilled facility once stable Medical team conference was held on the patient discussion of diagnosis treatments plans and prognosis as well as disposition. In addition to myself the following team members were present nursing, physical therapy, speech therapy, occupational therapy, case management, social work, nutrition, exhibition carver , palliative care, and home health nursing. Input from each discipline was recieved and is incorporated in the plan of care in the medical record as well as in the plans in the progress notes. Disposition Plan: To skilled facility Case Care Discussed with: Patient, Family, Nursing Staff Education/Counseling Given To: Patient, Family Member Education/Counseling Given Regarding: Diagnosis, Treatment, Prognosis, Follow Up , Disposition Plan Total Time: 45 minutes Critical Care: No Couseling Time (>50% in counseling/coordination): No
[2016-11-30 22:27] LABS: LEUKOCYTES/URINE NEG (NEGATIVE); NITRITE/URINE NEG (NEGATIVE); URINE OCCULT BLOOD NEG (NEG/TRACE); WBC/URINE 0-2 (0-2)
[2016-12-01] MEDS: SODIUM CHLORIDE 0.9% 3 ML FLUSH FLUSH SCH ×2 (04:21→17:45)
[2016-12-01] MEDS: OXYCODONE HCL 5 MG TABLET PO PRN ×5 (04:26→22:42)
[2016-12-01] MEDS: REGULAR INSULIN 100 UNITS/ML - 3 ML VIAL SQ SCH ×4 (05:56→21:13)
--- NOTE | 2016-12-01 06:23 | PCM.ORTHBL ---
- Subjective Post Op Day: 2 Daily Assessment - Patient: Reports: No new complaints, Awake Alert Oriented x4 , Feels better, Pain is less, Tolerating Regular Diet, Voiding without difficulty, Afebrile, Ambulating with Physical Therapist, Other (Denies chest pain. He does state that he heard a "pop" once with ambulation after surgery, however denies increase in pain and has been ambulating over the past day without recurrence.). Denies: Difficulty Swallowing, Shortness of breath, Nausea, Vomiting - Objective / Physical Exam Vital Signs: Temperature: 98.3 F (11/30/16 21:48) HR: 115 (11/30/16 22:05)RR: 18 (11/30/16 21 :48) BP: 146/83 (11/30/16 21:48)Pulse Ox: 95 (11/30/16 21:48) General: Alert, Oriented x3, Cooperative, No acute distress, Well appearing Musculoskeletal / Extremities: 2 plus Dorsalis Pedis Pulse, Dressing Clean/Dry/ Intact. negative: Tenderness (no calf tenderness) Neurological: Positive Sensation First Dorsal Web Space, Sensation to light touch intact, Extensor Hallicus Longus Intact, Flexor Hallicus Longus Intact, Dorsiflexion Intact, Plantarflexion Intact - Assessment and Plan (1) Intertrochanteric fracture of left hip Acute S72.142A - DISPLACED INTERTROCHANTERIC FRACTURE OF LEFT FEMUR, INIT Present on Admission: Yes initial encounter closed S72.142A - Displaced intertrochanteric fracture of left femur, initial encounter for closed fracture (2) Hip fracture Acute S72.009A - FRACTURE OF UNSP PART OF NECK OF UNSP FEMUR, INIT initial encounter closed left S72.002A - Fracture of unspecified part of neck of left femur, initial encounter for closed fracture Plan: s/p left hip IM nail PT/OT/WBAT TEDS/SCDS/Aspirin 325mg BID for 30 days post-op for DVT prophylaxis Continue pain management D/C planning, patient will likely need SNF
[2016-12-01 07:45] LABS: MPV 9.3 fL (7.4-10.4)
[2016-12-01] MEDS: Aspirin (Orange Enteric Coated) 325 mg tab PO SCH ×2 (07:54→17:45)
[2016-12-01] MEDS: D5-1/2NS/KCL 20 mEq 1,000 ML IV SCH ×2 (07:54→21:15)
--- NOTE | 2016-12-01 16:40 | GENMEDPROG ---
Subjective Note: Patient sleeping soundly did not awaken for examination. No family present. Notes Reviewed: Yes Events from last night noted and discussed with Clinical Staff Current Medication List: Reviewed Currently: Denies: Cough, Wheezing, WINKLER, Nausea and Vomiting, Reflux Sx, Caty PT/ OT, Ambulating DVT Prophylaxis: Yes - Physical Examination Vital Signs and I&O: Last Vital Signs Temp 98.5 F 12/01/16 14:00 Pulse 110 12/01/16 14:55 Resp 18 12/01/16 14:00 BP 145/69 12/01/16 14:00 Pulse Ox 92 12/01/16 14:00 Oxygen Pulse Oxygen Saturation [ 85 Seated] Pulse Oxygen Saturation 92 O2 Device Room Air Oxygen Flow Rate 2 Fraction of Inspired Oxygen ( FIO2) Intake & Output 11/28/16 11/29/16 11/30/16 12/01/16 23:59 23:59 23:59 23:59 Intake Total 200 1528 1840 1317 Output Total 400 1725 1625 1500 Balance -200 -197 215 -183 Patient's weight 106.367 kg 107.275 kg 108.579 kg General: Alert, Oriented x3, Cooperative, No acute distress, Well appearing HEENT: Normal (Normocephalic, atraumatic;EOMI.Sclera white, Nares patent, without discharge or bleeding. No oropharyngeal lesions or erythema. Mucous membranes are dry.) Neck: Non-tender, Full range of motion, Normal Trachea alignment, Normal inspection (No cervical lymphadenopathy. No supraclavicular lymphadenopathy.), No Masses palpable, Supple Lymphatics: Normal (No lymph node swelling or pain.) Respiratory: Normal - CTA (Clear to auscultation bilaterally. No wheezing, rales , rhonchi. Chest wall movements are symmetric. No use of accessory muscles to breathe.) Cardiovascular: Regular rate and rhythm (No bradycardia or tachycardia), Normal S1, No Gallops,Rubs/Murmurs, Normal S2, Good Pedal Pulses (DP pulses 2+ bilaterally) GI: Normal bowel sounds (normal active sounds), Soft (non-distended), Non tender , No hepatospenomegaly, No masses Skin: Warm,Dry and Intact, No rashes, No significant lesion Neurological: Strength at 5/5 X4 ext (Motor 5/5 throughout.), Normal tone, Cranial nerves 3-12 NL ( 2-12 grossly intact.) Lab/DI/Studies Reviewed: Laboratory Results - last 24 hr 11/30/16 11/30/16 12/01/16 20:58 21:56 05:52 WBC RBC Hgb Hct MCV MCH MCHC RDW Plt Count MPV POC Capillary Glucose 147 H 186 H Urine Color Yellow Urine Clarity Clear Urine pH 6.0 Ur Specific [place] 1.005 Urine Protein 1+ H Urine Glucose (UA) Trace Urine Ketones Neg Urine Occult Blood Neg Urine Nitrite Neg Urine Bilirubin Neg Urine Urobilinogen <2.0 Ur Leukocyte Esterase Neg Urine WBC 0-2 Urine Mucus Occ 12/01/16 12/01/16 06:49 11:06 WBC 9.4 RBC 3.10 L Hgb 9.8 L Hct 28.8 L MCV 93 MCH 31.7 MCHC 34.2 RDW 12.9 Plt Count 160 MPV 9.3 POC Capillary Glucose 204 H Urine Color Urine Clarity Urine pH Ur Specific [place] Urine Protein Urine Glucose (UA) Urine Ketones Urine Occult Blood Urine Nitrite Urine Bilirubin Urine Urobilinogen Ur Leukocyte Esterase Urine WBC Urine Mucus - Assessment (1) Intertrochanteric fracture of left hip Acute S72.142A - DISPLACED INTERTROCHANTERIC FRACTURE OF LEFT FEMUR, INIT Qualifiers: Encounter type: initial encounter Fracture type: closed Qualified Code(s) : S72.142A - Displaced intertrochanteric fracture of left femur, initial encounter for closed fracture Comment/Plan: Continue with physical therapy. Notes reflect progress. (2) Diabetes type 2, controlled Acute E11.9 - TYPE 2 DIABETES MELLITUS WITHOUT COMPLICATIONS Qualifiers: Diabetes mellitus complication status: without complication Diabetes mellitus fdc insulin use: without fdc use Qualified Code(s): E11.9 - Type 2 diabetes mellitus without complications Comment/Plan: Hemoglobin A1c is well controlled. Continue present care (3) Hypertension Acute I10 - ESSENTIAL (PRIMARY) HYPERTENSION Qualifiers: Hypertension type: essential hypertension Qualified Code(s): I10 - Essential (primary) hypertension Comment/Plan: Patient tolerating p.o. intake. Will restart oral meds blood pressure medications. (4) History of prostate cancer Acute Z85.46 - PERSONAL HISTORY OF MALIGNANT NEOPLASM OF PROSTATE Comment/ Plan: Still on treatment. Continue home medications after surgery. - Plan To skilled facility once stable Medical team conference was held on the patient discussion of diagnosis treatments plans and prognosis as well as disposition. In addition to myself the following team members were present nursing, physical therapy, speech therapy, occupational therapy, case management, social work, nutrition, hydroponics grower , palliative care, and home health nursing. Input from each discipline was recieved and is incorporated in the plan of care in the medical record as well as in the plans in the progress notes. Disposition Plan: To skilled facility Case Care Discussed with: Patient, Nursing Staff Education/Counseling Given To: Patient, Family Member Education/Counseling Given Regarding: Diagnosis, Treatment, Prognosis, Follow Up , Disposition Plan Total Time: 45 minutes Critical Care: No Couseling Time (>50% in counseling/coordination): No
[2016-12-01] MEDS: MetFORMIN, EXT REL 500 MG TAB PO SCH (17:44)
[2016-12-02] MEDS: OXYCODONE HCL 5 MG TABLET PO PRN ×3 (02:43→09:50)
[2016-12-02] MEDS: SODIUM CHLORIDE 0.9% 3 ML FLUSH FLUSH SCH (05:28)
[2016-12-02 05:51] LABS: MPV 9.1 fL (7.4-10.4)
--- NOTE | 2016-12-02 05:51 | PCM.ORTHBL ---
- Subjective Post Op Day: 3 Daily Assessment - Patient: Reports: No new complaints, Awake Alert Oriented x4 , Feels better, Still having pain, Tolerating Regular Diet, Voiding without difficulty, Afebrile, Ambulating with Physical Therapist, Other (denies chest pain). Denies: Shortness of breath, Nausea, Vomiting - Objective / Physical Exam Vital Signs: Temperature: 98.2 F (12/01/16 22:00) HR: 103 (12/01/16 22:00)RR: 18 (12/01/16 22 :00) BP: 153/64 (12/01/16 22:00)Pulse Ox: 96 (12/01/16 22:00) General: Alert, Oriented x3, Cooperative, No acute distress, Well appearing Musculoskeletal / Extremities: 2 plus Dorsalis Pedis Pulse, Dressing Clean/Dry/ Intact, Tenderness (no calf tenderness), Swelling (left hip swollen but soft) Neurological: Positive Sensation First Dorsal Web Space, Sensation to light touch intact, Extensor Hallicus Longus Intact, Flexor Hallicus Longus Intact, Dorsiflexion Intact, Plantarflexion Intact Skin: Ecchymosis Present (along surgical/fracture site) Laboratory/Diagnostics Reviewed: 12/02/16 05:30 11/30/16 06:45 - Assessment and Plan (1) Intertrochanteric fracture of left hip Acute S72.142A - DISPLACED INTERTROCHANTERIC FRACTURE OF LEFT FEMUR, INIT Present on Admission: Yes initial encounter closed S72.142A - Displaced intertrochanteric fracture of left femur, initial encounter for closed fracture (2) Hip fracture Acute S72.009A - FRACTURE OF UNSP PART OF NECK OF UNSP FEMUR, INIT initial encounter closed left S72.002A - Fracture of unspecified part of neck of left femur, initial encounter for closed fracture Plan: POD#3 s/p IM nail left hip PT/OT/WBAT TEDS/SCDS/ECASA 325mg BID for 30 days post-op for DVT prophylaxis Continue pain management D/c plan for SNF once approved and if medically stable
[2016-12-02 06:05] VITALS: TEMP 98.3
[2016-12-02] MEDS: REGULAR INSULIN 100 UNITS/ML - 3 ML VIAL SQ SCH ×2 (06:15→12:50)
[2016-12-02] MEDS: MetFORMIN, EXT REL 500 MG TAB PO SCH (06:15)
--- NOTE | 2016-12-02 07:07 | PCM.DCS92 ---
- Final/Secondary Discharge Diagnosis (1) Intertrochanteric fracture of left hip Acute S72.142A - DISPLACED INTERTROCHANTERIC FRACTURE OF LEFT FEMUR, INIT Present on Admission: Yes initial encounter closed S72.142A - Displaced intertrochanteric fracture of left femur, initial encounter for closed fracture (2) Hip fracture Acute S72.009A - FRACTURE OF UNSP PART OF NECK OF UNSP FEMUR, INIT initial encounter closed left S72.002A - Fracture of unspecified part of neck of left femur, initial encounter for closed fracture Discharge Disposition: Longterm Facility Discharge Condition: Stable Cognitive Discharge Status: Unimpaired Fuctional Discharge Status: Walker Assistance Physician Follow up/Referrals: Tristan Burt MD [Staff Physician] - Two Weeks New Prescriptions: Aspirin (OrangeEnteric Coated) [Ecotrin] 325 mg PO BID #60 tab Docusate-Senna Concentrate [Senokot S or Annel Colace] 1 each PO QHS #30 tab Oxycodone Immediate Release [Oxycodone Immediate Release (OxyIR)] 10 mg PO Q4H PRN #20 tablet PRN Reason: Moderate To Severe Pain Oxycodone Immediate Release [Oxycodone Immediate Release (OxyIR)] 5 mg PO Q4H PRN #40 tab PRN Reason: Pain Diet at Discharge: As Tolerated, Diabetic Activity: As Tolerated, No Heavy Lifting, No Driving Call Office For: Worsening Symptoms, Wound is Draining Pus, Fever over 101 F, Fever over 100.5, Wound is Painful, Wound is Red, Weight Gain (see below), Pain Uncontrolled By Meds, Other (See Details) Discontinue use of:: Alcohol, All Illegal Substances, All Types of Tobacco - DC Summary Notes Hospital Course Note:: Discharge summary on patient named WAYNE CRAWFORD admitted to [facility] on 11/28/16 by Slyvia Wiggins MD. Date of discharge is [12/02/16]. Afebrile. Hospital course and surgery uneventful. Progressing with PT. WBAT. Continue pain management. ECASA 325mg BID for 30 days post-op for DVT prophylaxis. Daily dressing changes as needed. Discharge to SNF. To follow- up in office in 2 weeks or earlier as needed. Wound Care Surgical Site: Yes Site Description (if applicable): left hip May Shower Starting:: upon discharge, may shower with Tegaderm in place Dressing/Site Care (if applicable): Daily dressing changes as needed. Medical Equipment (Order must still be written on paper): Walker Remove Transdermal Scopalamine patch if present: YES Medication Instructions: Take Stool Softener Continue Ice Packs/Ice Machine to Operative Area: Yes Activity as Tolerated: Yes Weight Bearing: Full Current Dressing: Tegaderm Dressing Care: Keep Wound Clean & Dry, Shower with Tegaderm Dsg, No Tub Baths, Change Dressing Daily (as needed) - Physical Exam Vital Signs: Initial Vitals Temperature 98.2 F 11/28/16 12:50 Pulse Rate 95 11/28/16 12:50 Respiratory Rate 18 11/28/16 12:50 Blood Pressure 214/97 H 11/28/16 12:50 Pulse Oxygen Saturation 95 11/28/16 12:50 Constitutional: No apparent distress, Alert, Well appearing Oriented to: Time, Person, Place - HEENT Head: Normal - Musculoskeletal Extremities: Pedal Pulse. negative: Calf Tenderness - Neurologic Memory Impaired: Normal Motor Function: Normal Cranial Nerve: Normal Cerebellar: Normal Mood Description: Normal Thought: Coherent Perception: Normal
[2016-12-02] MEDS: Aspirin (Orange Enteric Coated) 325 mg tab PO SCH (08:19)
[2016-12-02 08:40] VITALS: BP 125/57
[2016-12-02] MEDS ORDERED: LOSARTAN KCL/HCTZ 50-12.5 TAB PO SCH (09:00)
[2016-12-02] MEDS: D5-1/2NS/KCL 20 mEq 1,000 ML IV SCH (10:28)
[2016-12-02 11:02] VITALS: PULSE 107
--- NOTE | 2016-12-02 11:59 | PCM.DCS92 ---
- Final/Secondary Discharge Diagnosis (1) Intertrochanteric fracture of left hip Acute S72.142A - DISPLACED INTERTROCHANTERIC FRACTURE OF LEFT FEMUR, INIT Present on Admission: Yes initial encounter closed S72.142A - Displaced intertrochanteric fracture of left femur, initial encounter for closed fracture Comment: Continue with physical therapy. Notes reflect progress. (2) Diabetes type 2, controlled Acute E11.9 - TYPE 2 DIABETES MELLITUS WITHOUT COMPLICATIONS Present on Admission: Yes without complication without chcf use E11.9 - Type 2 diabetes mellitus without complications Comment: Hemoglobin A1c is well controlled. Continue present care (3) Hypertension Acute I10 - ESSENTIAL (PRIMARY) HYPERTENSION Present on Admission: Yes essential hypertension I10 - Essential (primary) hypertension Comment: Patient tolerating p.o. intake. Will restart oral meds blood pressure medications. (4) History of prostate cancer Acute Z85.46 - PERSONAL HISTORY OF MALIGNANT NEOPLASM OF PROSTATE Present on Admission: Yes Comment: Still on treatment. Continue home medications after surgery. Discharge Disposition: Intermediate Facility Discharge Condition: Stable Cognitive Discharge Status: Unimpaired Fuctional Discharge Status: Independent Physician Follow up/Referrals: Tristna Burt MD [Staff Physician] - Two Weeks New Prescriptions: Aspirin (OrangeEnteric Coated) [Ecotrin] 325 mg PO BID #60 tab Oxycodone Immediate Release [Oxycodone Immediate Release (OxyIR)] 10 mg PO Q4H PRN #20 tablet PRN Reason: Moderate To Severe Pain Oxycodone Immediate Release [Oxycodone Immediate Release (OxyIR)] 5 mg PO Q4H PRN #40 tab PRN Reason: Pain Docusate-Senna Concentrate [Senokot S or Annel Colace] 1 each PO QHS #30 tab Discharge Home Medication List Enzalutamide [Xtandi] 160 mg PO DAILY 07/05/16 [History Confirmed 11/28/16] Losartan/Hydrochlorothiazide [Losartan-Hctz 100-25 mg Tab] 1 each PO DAILY 07/05 [History Confirmed 11/28/16] Metformin HCl [Metformin HCl ER] 500 mg PO BID 07/05/16 [History Confirmed 11/28] Aspirin (OrangeEnteric Coated) [Ecotrin] 325 mg PO BID #60 tab 12/02/16 [Rx] Docusate-Senna Concentrate [Senokot S or Annel Colace] 1 each PO QHS #30 tab 11/06 [Rx] Oxycodone Immediate Release [Oxycodone Immediate Release (OxyIR)] 5 mg PO Q4H PRN #40 tab 12/02/16 [Rx] Oxycodone Immediate Release [Oxycodone Immediate Release (OxyIR)] 10 mg PO Q4H PRN #20 tablet 12/02/16 [Rx] New Discharge Medications (Rx) Aspirin (OrangeEnteric Coated) [Ecotrin] 325 mg PO BID #60 tab 12/02/16 [Rx] Docusate-Senna Concentrate [Senokot S or Annel Colace] 1 each PO QHS #30 tab 11/06 [Rx] Oxycodone Immediate Release [Oxycodone Immediate Release (OxyIR)] 5 mg PO Q4H PRN #40 tab 12/02/16 [Rx] Oxycodone Immediate Release [Oxycodone Immediate Release (OxyIR)] 10 mg PO Q4H PRN #20 tablet 12/02/16 [Rx] O2 Device: Room Air Diet at Discharge: As Tolerated, Diabetic Activity: As Tolerated, No Heavy Lifting, No Driving Call Office For: Worsening Symptoms, Wound is Draining Pus, Fever over 101 F, Fever over 100.5, Wound is Painful, Wound is Red, Weight Gain (see below), Pain Uncontrolled By Meds, Other (See Details) Discontinue use of:: Alcohol, All Illegal Substances, All Types of Tobacco - DC Summary Notes Hospital Course Note:: Discharge summary on patient named WAYNE CRAWFORD admitted to [facility] on 11/28/16 by Sylvia Wiggins MD. Date of discharge is []. 71-year-old gentleman admitted with a hip fracture did very well in the operating room and postoperatively. He had no medical issues. He is doing well with physical therapy and ambulating to his expected level for 3 days postoperatively. He will transfer to [facility] for halfway facility rehab. At this point patient is reached maximal benefit of hospitalization. He is stable for discharge home. Total Time: 45 min Wound Care Surgical Site: Yes Site Description (if applicable): left hip May Shower Starting:: upon discharge, may shower with Tegaderm in place Dressing/Site Care (if applicable): Daily dressing changes as needed. - Physical Exam Vital Signs: Last Vital Signs Temp 98.3 F 12/02/16 06:00 Pulse 107 12/02/16 11:01 Resp 18 12/02/16 06:00 BP 125/57 L 12/02/16 08:40 Pulse Ox 93 12/02/16 07:56 Oxygen Pulse Oxygen Saturation [ 85 Seated] Pulse Oxygen Saturation 93 O2 Device Room Air Oxygen Flow Rate 2 Fraction of Inspired Oxygen ( FIO2) Constitutional: No apparent distress, Other (obese) Oriented to: Time, Person, Place - HEENT Head: Normal. negative: Abrasion Eye: Normal. negative: Conjunctival Injection Oropharynx: Normal. negative: Tonsillar Hypertrophy Tympanic Membrane: Normal ENT EAC: Normal Nose: negative: Abrasion, Congestion - Respiratory/Cardiovascular Respiratory: Normal - CTA (Clear to auscultation bilaterally. No wheezing, rales , rhonchi. Chest wall movements are symmetric. No use of accessory muscles to breathe.) Cardiovascular: Normal (RRR , Normal S1, S2. No murmurs, rubs, or gallops. PMI non-displaced. Carotids: no carotid bruits. No bradycardia or tachycardia. DP pulses 2+ bilaterally.) - GI Auscultation: Normal Palpation: Normal. negative: Enlarged liver, Enlarged spleen Tenderness: Non tender Rectal Exam: Deferred - Musculoskeletal Back: No Palpable Step-off, Other (not viewed due to immobilization from fracture) Extremities: Pedal Pulse (intact and equal). negative: Calf Tenderness, Edema - Integumentary Skin: Normal (Warm dry no rashes) Lymphatics: Normal (No lymph node swelling or pain.) - Neurologic Memory Impaired: Normal Cerebellar: Normal Mood Description: Normal Thought: Coherent Perception: Normal - Other Exam Other Exam Findings: Abnormal Lab Results 12/01/16 12/01/16 12/02/16 16:18 20:44 04:31 RBC Hgb Hct POC Capillary Glucose 153 H 159 H 185 H 12/02/16 12/02/16 05:30 11:30 RBC 2.95 L Hgb 9.4 L Hct 27.6 L POC Capillary Glucose 185 H
== END 2016-12-02 13:28 | DRG 482 ==
LOC: ED 12:38 → MPS3 16:36
PROVIDERS: ADMIT Family Medicine; ATTEND Hospitalist
PROC: 0QS736Z Reposition Left Upper Femur with Intramedullary Internal Fixation Device, Percutaneous Approach (ICD-10-PCS; principal; 2016-11-29 10:55)
DX: S72.142A Displaced intertrochanteric fracture of left femur, initial encounter for closed fracture (principal); E11.9 Type 2 diabetes mellitus without complications; I10 Essential (primary) hypertension; Z85.46 Personal history of malignant neoplasm of prostate; W00.0XXA Fall on same level due to ice and snow, initial encounter; Y93.9 Activity, unspecified; Y92.008 Other place in unspecified non-institutional (private) residence as the place of occurrence of the external cause; Z79.899 Other long term (current) drug therapy; Z87.891 Personal history of nicotine dependence
CPT/HCPCS: 36415; 71010; 73502; 80048; 80053; 81001; 82043; 82962; 83036; 84484; 85025; 85027; 85610; 85730; 86850; 86900; 86901; 87086; 87641; 93005; 96372; 96374; 97161; 97165; 99285; G0237; J0330; J0690; J1100; J1170; J2001; J2250; J2270; J2405; J3010; J3490; J7070